=== PATIENT | female | born 1945 | race Two or more races ===

== ENCOUNTER 2019-04-26 06:14 | Emergency (ER) | payer OTHER ==
[~2019-04-26] VITALS: Ht 162.6 cm; Wt 80.7 kg
[2019-04-26] MEDS ORDERED: LEVOTHYROXINE25 MCG PO (06:21)
[2019-04-26] MEDS ORDERED: HYZAAR 100-251 EACH PO (06:22)
[2019-04-26] MEDS ORDERED: CARVEDILOL25 MG PO (08:11)
== END 2019-04-26 14:36 | disposition home or self-care (01) ==
LOC: ER 06:14 → EDBD 06:21 → CPU-OBS 06:21 → ER 06:21
DX: I95.89 Other hypotension (principal); R55 Syncope and collapse; R00.1 Bradycardia, unspecified